=== PATIENT | male | born 1950 | race Caucasian/White ===

== ENCOUNTER → 2018-09-08 11:34 | Outpatient (CLI) | payer OTHER, SELFPAY ==
--- NOTE | 2018-09-08 11:36 | RAD_ITS ---
STUDY: X-RAY - RIGHT KNEE REASON FOR EXAM: Male, 67 years old. Right knee pain. TECHNIQUE: 4 view(s) of the knee. COMPARISON: None. FINDINGS: Normal visualized distal femur. Normal visualized proximal tibia and fibula. Normal proximal tibiofibular articulation. Mild narrowing of the medial femorotibial compartment. Normal lateral femorotibial compartment. Normal patellofemoral articulation. Minimal calcification of the popliteal artery. RAD/Knee 4 or More Views IMPRESSION: 1. 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 2. No acute osseous abnormality of the right knee. Electronically Signed: Andrew Tejada MD at 10:21 EDT , Service support ,
== END ==
PROVIDERS: Family Provider Family Medicine; PCP Family Medicine; Referring Provider Physician Assistant; Visit Provider Physician Assistant
DX: M25.561 Pain in right knee (principal)
CPT/HCPCS: 73564

== ENCOUNTER → 2018-09-15 09:30 | Outpatient (CLI) | payer OTHER, SELFPAY ==
--- NOTE | 2018-09-15 09:32 | US_ITS ---
STUDY: SUPERFICIAL ULTRASOUND - POSTERIOR RIGHT KNEE REASON FOR EXAM: Male, 67 years old. Lump of posterior right knee x1 month TECHNIQUE: A superficial ultrasound was performed with real-time and static mosqueda-scale imaging. COMPARISON: None. FINDINGS: There is a noncompressible cystic structure with septations of the popliteal fossa measuring 2.3 x 1.6 x 1.4 cm. This structure is avascular. US/Ext Non Vasc Limited/Soft Tiss IMPRESSION: Noncompressible cystic structure with septations of the popliteal fossa measuring 2.3 x 1.6 x 1.4 cm, consistent with a complex Howard's cyst. Electronically Signed: Barney Batista MD at 23:49 EDT , Service support ,
== END ==
PROVIDERS: Family Provider Family Medicine; PCP Family Medicine; Referring Provider Physician Assistant; Visit Provider Physician Assistant
DX: L72.9 Follicular cyst of the skin and subcutaneous tissue, unspecified (principal)
CPT/HCPCS: 76882

== ENCOUNTER → 2018-12-23 09:47 | Outpatient (CLI) | payer OTHER, SELFPAY ==
[2018-12-23 12:42] LABS: Absolute Lymphocyte Count 1.23 X10^3/ul (0.83-4.51); Absolute Neutrophil Count 3.1 X10^3/uL (2.0-7.7); Basophil# 0.03 X10^3/uL; Basophil% 0.6 % (0-1); Eosinophil# 0.05 X10^3/uL; Hematocrit 42.4 % (40-54); Hemoglobin 14.3 g/dl (13.0-16.5); Lymphocyte # 1.23 X10^3/ul (4.0); Lymphocyte % 24.8 % (19-41); Mean Corp Hgb Conc 33.7 g/gl (32-36); Mean Corpuscular Hgb 31.9 pg (27.0-32.0); Mean Corpuscular Volume 94.6 fL (80-94); Mean Platelet Vol. 11.1 fl (6.2-12.0); Monocyte% 10.1 % (0-10); Neutrophil # 3.14 X10^3/uL (2.7-7.7); Neutrophil % 63.3 % (47-70); POSITIVE COUNT NO; POSITIVE DIFFERENTIAL NO; POSITIVE MORPHOLOGY NO; Platelet Count 82 K/mm3 (150-450); RBC Distribution Width CV 12.9 % (11.6-14.6); RBC Distribution Width SD 43.4 fl (35.1-43.9); Red Blood Count 4.48 M/mm3 (4.6-6.2)
[2018-12-23 12:54] LABS: Anion Gap 10 (5-15); BUN 19 mg/dL (7-18); BUN/Creat Ratio 21.2 RATIO (10-20); Chloride 105 mmol/L (98-107); EST Glomerular Filtration Rate 90 mL/min (>60); Est Glom Filt Rate - Afr Amer 108 mL/min (>60); Glucose 100 mg/dL (74-106); PSA,Total - Annual Screen 2.05 ng/mL (0.00-4.00); Potassium 3.9 mmol/L (3.5-5.1); Sodium Level 142 mmol/L (136-145); Thyroid Stim Hormone (TSH) 1.46 uIU/mL (0.358-3.74); Uric Acid 5.3 mg/dL (3.5-7.2)
== END ==
PROVIDERS: Family Provider Family Medicine; PCP Family Medicine; Visit Provider Family Medicine
DX: I10 Essential (primary) hypertension (principal); M10.9 Gout, unspecified; N20.0 Calculus of kidney
CPT/HCPCS: 36415; 80048; 84153; 84443; 84550; 85025; G0103

== ENCOUNTER → 2018-12-28 09:57 | Outpatient (CLI) | payer OTHER, SELFPAY ==
[2018-09-08 11:34] VITALS: BMI 28.2
--- NOTE | 2018-12-28 10:00 | CDU_ITS ---
Reason For Study: Carotid stenosis Rt. Velocities/BP Lt. Velocities/BP Prox CCA 112/25.1 cm/sec. Prox CCA 134/25.5 cm/sec. Mid CCA 95.9/25.9 cm/sec. Mid CCA 81.7/22 cm/sec. Dist CCA 70.7/21.2 cm/sec. Dist CCA 80.9/24.4 cm/sec. Prox ICA 74.5/21.7 cm/sec. Prox ICA 76.2/22.8 cm/sec. Mid ICA 79.7/25.2 cm/sec. Mid ICA 84.1/27.5 cm/sec. Dist ICA 77.4/31.7 cm/sec. Dist ICA 82.5/32.2 cm/sec. Rt. ICA/CCA = 0.83. Lt. ICA/CCA = 1.03. Prox ECA 135/30.6 cm/sec. Prox ECA 137/32.4 cm/sec. Rt. Vert. 33.8/11.7 cm/sec. Lt. Vert. 38.9/12.2 cm/sec. Right Extracranial There is intimal thickening but no significant atherosclerotic plaque noted in the right common carotid artery. There is heterogeneous, irregular atherosclerotic plaque noted in the right internal carotid artery. There is intimal thickening but no significant atherosclerotic plaque noted in the right external carotid artery. Antegrade flow is noted in the right vertebral artery. Left Extracranial There is intimal thickening but no significant atherosclerotic plaque noted in the left common carotid artery. There is heterogeneous, irregular atherosclerotic plaque noted in the left internal carotid artery. There is intimal thickening but no significant atherosclerotic plaque noted in the left external carotid artery. Antegrade flow is noted in the left vertebral artery. Procedure Carotid Duplex 45058. Exam performed in department. Interpretation Summary Mild (<50%) stenosis right extracranial internal carotid. Mild (<50%) stenosis left extracranial internal carotid. Flow within the vertebral arteries is antegrade bilaterally. Ordering Physician: Dennys Garvin Referring Physician: Dennys Garvin Performed By: Chay DIAS RD Khloe and Student
== END ==
PROVIDERS: Family Provider Family Medicine; PCP Family Medicine; Referring Provider Family Medicine; Visit Provider Family Medicine
DX: I65.29 Occlusion and stenosis of unspecified carotid artery (principal)
CPT/HCPCS: 93880

== ENCOUNTER 2019-03-03 13:53 | Outpatient (RCR) | payer SELFPAY | END 2019-03-03 19:00 | disposition home or self-care (01) | LOC: PT 13:53 | PROVIDERS: Family Provider Family Medicine; PCP Family Medicine | DX: R69 Illness, unspecified (principal) ==

== ENCOUNTER → 2019-03-23 | Outpatient (CLI) | payer OTHER, SELFPAY ==
[2018-09-08 11:34] VITALS: BMI 28.2
[2019-03-23 12:15] LABS: Absolute Lymphocyte Count 1.39 X10^3/ul (0.83-4.51); Absolute Neutrophil Count 4.1 X10^3/uL (2.0-7.7); Basophil# 0.01 X10^3/uL; Basophil% 0.2 % (0-1); Eosinophil# 0.08 X10^3/uL; Eosinophils% 1.3 % (0-5); Hemoglobin 14.3 g/dl (13.0-16.5); Lymphocyte # 1.39 X10^3/ul (4.0); Lymphocyte % 22.3 % (19-41); Mean Corp Hgb Conc 33.3 g/gl (32-36); Mean Corpuscular Hgb 30.6 pg (27.0-32.0); Mean Corpuscular Volume 92.1 fL (80-94); Mean Platelet Vol. 11.4 fl (6.2-12.0); Monocyte# 0.61 X10^3/uL; Monocyte% 9.8 % (0-10); Neutrophil % 65.9 % (47-70); Platelet Count 103 K/mm3 (150-450); RBC Distribution Width CV 12.7 % (11.6-14.6); RBC Distribution Width SD 41.7 fl (35.1-43.9); Red Blood Count 4.67 M/mm3 (4.6-6.2); White Blood Count 6.2 K/mm3 (4.4-11.0)
[2019-03-23 12:18] LABS: POSITIVE COUNT NO; POSITIVE DIFFERENTIAL NO; POSITIVE MORPHOLOGY NO
[2019-03-23 17:53] LABS: Vitamin B12 613 pg/mL (211-911)
== END | disposition home or self-care (01) ==
LOC: LAB.FUTURE 08:33
PROVIDERS: Family Provider Family Medicine; PCP Family Medicine; Visit Provider Family Medicine
DX: D69.6 Thrombocytopenia, unspecified (principal)
CPT/HCPCS: 36415; 82607; 85025

== ENCOUNTER → 2020-01-19 09:33 | Outpatient (CLI) | payer OTHER, SELFPAY ==
[2018-09-08 11:34] VITALS: BMI 28.2
[2020-01-19 12:18] LABS: Absolute Lymphocyte Count 1.35 X10^3/uL (0.83-4.51); Absolute Neutrophil Count 2.5 X10^3/uL (2.0-7.7); Basophil# 0.03 X10^3/uL; Basophil% 0.7 % (0-1); Eosinophil# 0.03 X10^3/uL; Eosinophils% 0.7 % (0-5); Hematocrit 42.1 % (40-54); Lymphocyte # 1.35 X10^3/ul (4.0); Mean Corp Hgb Conc 33.3 g/dL (32-36); Mean Corpuscular Hgb 30.9 pg (27.0-32.0); Mean Corpuscular Volume 92.9 fL (80-94); Mean Platelet Vol. 10.5 fl (6.2-12.0); Monocyte# 0.47 X10^3/uL; Monocyte% 10.8 % (0-10); NRBC Flagged by Analyzer 0 % (0-5); Neutrophil # 2.46 X10^3/uL (2.7-7.7); Neutrophil % 56.3 % (47-70); POSITIVE COUNT YES; RBC Distribution Width CV 12.7 % (11.6-14.6); RBC Distribution Width SD 43.4 fl (35.1-43.9); Red Blood Count 4.53 M/mm3 (4.6-6.2); White Blood Count 4.4 K/mm3 (4.4-11.0)
[2020-01-19 12:39] LABS: ALB/GLOB Ratio 1.2 RATIO (0.9-2.4); AST(SGOT) 17 U/L (15-37); Alanine Aminotransfer ALT/SGPT 29 U/L (16-61); Albumin, Serum 3.9 g/dL (3.2-5.0); Alkaline Phosphatase 73 U/L (45-117); Anion Gap 6 (5-15); BUN 20 mg/dL (7-18); BUN/Creat Ratio 22.9 RATIO (10-20); Calcium,Total 8.8 mg/dL (8.5-10.1); Chloride 108 mmol/L (98-107); Creatinine, Serum 0.87 mg/dL (0.70-1.30); EST Glomerular Filtration Rate 92 mL/min (>60); Est Glom Filt Rate - Afr Amer 111 mL/min (>60); Globulin 3.3 g/dL (2.2-4.2); Glucose 98 mg/dL (74-106); PSA,Total - Annual Screen 1.58 ng/mL (0.00-4.00); Protein, Total 7.2 g/dL (6.4-8.2); Sodium Level 139 mmol/L (136-145); T4 Free Direct 0.89 ng/dL (0.76-1.46); Thyroid Stim Hormone (TSH) 1.12 uIU/mL (0.358-3.74); Uric Acid 5.1 mg/dL (3.5-7.2)
[2020-01-19 12:40] LABS: Differential Indicated SCAN CRITERIA MET
[2020-01-19 13:13] LABS: Platelet Estimate SLT DEC (ADEQ)
[2020-01-19 13:14] LABS: Red Cell Morphology NORM C+C NORMAL (NORM C&C)
== END ==
PROVIDERS: PCP Family Medicine; Visit Provider Family Medicine
DX: I10 Essential (primary) hypertension (principal); E78.5 Hyperlipidemia, unspecified; D69.6 Thrombocytopenia, unspecified; N20.0 Calculus of kidney; Z80.42 Family history of malignant neoplasm of prostate
CPT/HCPCS: 36415; 80053; 84153; 84439; 84443; 84550; 85025; G0103

== ENCOUNTER → 2020-01-26 07:48 | Outpatient (CLI) | payer OTHER, SELFPAY ==
--- NOTE | 2020-01-26 07:53 | CDU_ITS ---
Reason For Study: F/U stenosis Rt. Velocities/BP Lt. Velocities/BP Prox CCA 103.4/12.1 cm/sec. Prox CCA 124.0/23.6 cm/sec. Mid CCA 84.6/18.3 cm/sec. Mid CCA 107.6/29.0 cm/sec. Dist CCA 52.6/15.3 cm/sec. Dist CCA 72.9/23.6 cm/sec. Prox ICA 70.2/24.1 cm/sec. Prox ICA 60.1/19.5 cm/sec. Mid ICA 72.4/24.1 cm/sec. Mid ICA 79.7/29.4 cm/sec. Dist ICA 79.0/27.4 cm/sec. Dist ICA 92.0/34.3 cm/sec. Rt. ICA/CCA = 74.9/84.6=0.9. Lt. ICA/CCA = 92.0/107.6=0.9. Prox ECA 103.4/15.7 cm/sec. Prox ECA 109.4/19.9 cm/sec. Rt. Vert. 55.9/19.7 cm/sec. Lt. Vert. 61.3/18.3 cm/sec. Right Extracranial There is intimal thickening but no significant atherosclerotic plaque noted in the right common carotid artery. There is heterogeneous, irregular atherosclerotic plaque noted in the right internal carotid artery. There is intimal thickening but no significant atherosclerotic plaque noted in the right external carotid artery. Antegrade flow is noted in the right vertebral artery. Left Extracranial There is intimal thickening but no significant atherosclerotic plaque noted in the left common carotid artery. There is heterogeneous, irregular atherosclerotic plaque noted in the left internal carotid artery. There is intimal thickening but no significant atherosclerotic plaque noted in the left external carotid artery. Antegrade flow is noted in the left vertebral artery. Procedure Carotid Duplex 21598. The exam was diagnostic. Exam performed in department. Interpretation Summary Mild (<50%) stenosis right extracranial internal carotid. Mild (<50%) stenosis left extracranial internal carotid. Flow within the vertebral arteries is antegrade bilaterally. Ordering Physician: Dennys Garvin Referring Physician: Dennys Garvin Performed By: Khloe Cartwright RDCS, RVT
== END ==
PROVIDERS: PCP Family Medicine; Referring Provider Family Medicine; Visit Provider Family Medicine
DX: I65.29 Occlusion and stenosis of unspecified carotid artery (principal)
CPT/HCPCS: 93880

== ENCOUNTER 2021-01-10 13:21 | Outpatient (RCR) | payer MEDICARE, SELFPAY ==
[2018-09-08 11:34] VITALS: BMI 28.2
== END 2021-01-10 23:59 ==
LOC: IMMUN 13:21
PROVIDERS: PCP Family Medicine; Visit Provider Family Medicine
DX: Z23 Encounter for immunization (principal)
CPT/HCPCS: 0011A; 0012A; 91301

== ENCOUNTER → 2021-01-23 10:30 | Outpatient (CLI) | payer MEDICARE, OTHER, SELFPAY ==
[2021-01-23 12:18] LABS: Absolute Neutrophil Count 6.2 X10^3/uL (2.0-7.7); Basophil# 0.04 X10^3/uL; Basophil% 0.5 % (0-1); Eosinophil# 0.04 X10^3/uL; Eosinophils% 0.5 % (0-5); Hemoglobin 13.8 g/dL (13.0-16.5); Lymphocyte % 13.9 % (19-41); Mean Corp Hgb Conc 32.9 g/dL (32-36); Mean Corpuscular Hgb 31.3 pg (27.0-32.0); Mean Corpuscular Volume 95.2 fL (80-94); Mean Platelet Vol. 11.6 fl (6.2-12.0); Monocyte# 0.54 X10^3/uL; Monocyte% 6.8 % (0-10); NRBC Flagged by Analyzer 0 % (0-5); Neutrophil # 6.19 X10^3/uL (2.7-7.7); POSITIVE COUNT YES; RBC Distribution Width CV 12.6 % (11.6-14.6); RBC Distribution Width SD 43.7 fl (35.1-43.9); Red Blood Count 4.41 M/mm3 (4.6-6.2); White Blood Count 7.9 K/mm3 (4.4-11.0)
[2021-01-23 12:38] LABS: Differential Indicated SCAN CRITERIA MET
[2021-01-23 12:48] LABS: ALB/GLOB Ratio 1.2 RATIO (0.9-2.4); AST(SGOT) 24 U/L (15-37); Alanine Aminotransfer ALT/SGPT 28 U/L (16-61); Albumin, Serum 3.9 g/dL (3.2-5.0); Alkaline Phosphatase 68 U/L (45-117); Anion Gap 6 (5-15); BUN 16 mg/dL (7-18); BUN/Creat Ratio 19.2 RATIO (10-20); Calcium,Total 8.7 mg/dL (8.5-10.1); Chloride 107 mmol/L (98-107); Cholesterol 160 mg/dL (200); Creatinine, Serum 0.83 mg/dL (0.70-1.30); EST Glomerular Filtration Rate 97 mL/min (>60); Est Glom Filt Rate - Afr Amer 117 mL/min (>60); Globulin 3.2 g/dL (2.2-4.2); Glucose 104 mg/dL (74-106); High Density Lipoprotein 70 mg/dL; PSA,Total - Annual Screen 1.82 ng/mL (0.00-4.00); Potassium 3.9 mmol/L (3.5-5.1); Protein, Total 7.1 g/dL (6.4-8.2); Sodium Level 139 mmol/L (136-145); Thyroid Stim Hormone (TSH) 1.29 uIU/mL (0.358-3.74); Triglycerides 55 mg/dL; Very Low Density Lipoprotein 11 mg/dL (5-40)
[2021-01-23 14:14] LABS: Platelet Estimate ADEQUATE (ADEQ)
== END ==
PROVIDERS: PCP Family Medicine; Visit Provider Family Medicine
DX: E88.81 Metabolic syndrome and other insulin resistance (principal); E78.5 Hyperlipidemia, unspecified; D69.6 Thrombocytopenia, unspecified; Z12.5 Encounter for screening for malignant neoplasm of prostate
CPT/HCPCS: 36415; 80053; 80061; 84153; 84443; 85025; G0103

== ENCOUNTER 2021-12-11 06:43 | Outpatient (CLI) | payer MEDICARE, BC, SELFPAY ==
--- NOTE | 2021-12-11 06:50 | CT_ITS ---
STUDY: CT SOFT TISSUE NECK WITH CONTRAST REASON FOR EXAM: Male, 71 years old. RIGHT THROAT PAIN. 2 month history of right sided earache. RADIATION DOSAGE (If Supplied By Facility): CTDIvol = ( 18.34 ) mGy, DLP = ( 605.00 ) mGycm TECHNIQUE: The patient was scanned in a multi-detector CT scanner. High resolution transaxial imaging was performed following intravenous administration of IV 100mL Isovue-300. Sagittal and coronal images were reconstructed. Individualized dose optimization techniques were used for this CT. COMPARISON: None. FINDINGS: Normal bilateral parotid glands. Normal bilateral valet parker spaces. Normal bilateral parapharyngeal spaces. Normal bilateral carotid spaces. Normal bilateral sublingual and submandibular glands and spaces. Normal visualized nasopharynx. Normal retropharyngeal space. Normal perivertebral space. Normal visualized bilateral faucial tonsils. The visualized tongue, tongue base and oropharynx are normal. There are minimally enlarged lymph nodes of the neck, with preservation of normal froylan architecture, consistent with a reactive lymph hyperplasia. There is no demonstrated solid or cystic mass lesion. There is no abnormal contrast enhancement. Normal epiglottis, bilateral vallecula and hypopharynx. The pre-epiglottic and paraglottic adipose spaces are normal. Normal visualized bilateral piriform sinuses, aryepiglottic folds, vocal cords, and arytenoid-cricoid articulations. Normal subglottic trachea. Normal bilateral lobes of the thyroid gland. Normal visualized pulmonary apices. Normal visualized paranasal sinuses. There is multilevel degenerative changes of the cervical spine. CT/Soft Tissue Neck WITH Contrast IMPRESSION: No acute abnormality is seen. Electronically Signed: Hao Rogers MD at 9:51 EST , Service support ,
[2021-12-11 07:00] LABS: CREATININE FINGERSTICK 0.9 mg/dL (0.70-1.30); EGFR FINGERSTICK > 60.0000 mL/min (>60)
== END 2021-12-11 23:59 | disposition short-term general hospital (02) ==
PROVIDERS: PCP Family Medicine; Referring Provider Otolaryngology; Visit Provider Otolaryngology
DX: H92.01 Otalgia, right ear (principal); R07.0 Pain in throat
CPT/HCPCS: 70491; Q9967

== ENCOUNTER → 2022-03-21 | Outpatient (CLI) | payer MEDICARE, BC, SELFPAY ==
--- NOTE | 2022-03-21 11:57 | RAD_ITS ---
STUDY: XR Shoulder Min 2 Views REASON FOR EXAM: Male, 71 years old. PAIN TECHNIQUE: XR Shoulder Min 2 Views LEFT COMPARISON: None. FINDINGS: Normal glenohumeral articulation. Normal acromioclavicular joint. Normal acromion. Normal humeral head and visualized proximal humerus. The soft tissue structures are unremarkable. Normal visualized pulmonary apex. RAD/Shoulder min 2 Views IMPRESSION: There are no acute findings of the shoulder. Electronically Signed: Haider Morrison MD at 15:33 EDT ,
== END | disposition home or self-care (01) ==
LOC: MTRAD 11:57
PROVIDERS: PCP Family Medicine; Referring Provider Family Medicine; Visit Provider Family Medicine
DX: M25.512 Pain in left shoulder (principal)
CPT/HCPCS: 73030

== ENCOUNTER → 2022-03-25 | Outpatient (CLI) | payer MEDICARE, OTHER, SELFPAY ==
[2022-03-25 10:18] LABS: Vitamin D,25 Hydroxy 42.9 ng/mL
[2022-03-25 10:24] LABS: ALB/GLOB Ratio 1.1 RATIO (0.9-2.4); AST(SGOT) 21 U/L (15-37); Alanine Aminotransfer ALT/SGPT 28 U/L (16-61); Albumin, Serum 3.7 g/dL (3.2-5.0); Alkaline Phosphatase 69 U/L (45-117); Anion Gap 6 (5-15); BUN 17 mg/dL (7-18); BUN/Creat Ratio 18.2 RATIO (10-20); Calcium,Total 8.3 mg/dL (8.5-10.1); Chloride 105 mmol/L (98-107); Cholesterol 174 mg/dL (200); Creatinine, Serum 0.93 mg/dL (0.70-1.30); EST Glomerular Filtration Rate 85 mL/min (>60); Est Glom Filt Rate - Afr Amer 102 mL/min (>60); Globulin 3.3 g/dL (2.2-4.2); Glucose 107 mg/dL (74-106); High Density Lipoprotein 73 mg/dL; PSA,Total - Annual Screen 2.27 ng/mL (0.00-4.00); Potassium 3.9 mmol/L (3.5-5.1); Sodium Level 140 mmol/L (136-145); Triglycerides 90 mg/dL; Very Low Density Lipoprotein 18 mg/dL (5-40)
== END | disposition home or self-care (01) ==
PROVIDERS: PCP Family Medicine; Referring Provider Family Medicine; Visit Provider Family Medicine
DX: Z00.00 Encounter for general adult medical examination without abnormal findings (principal); E78.5 Hyperlipidemia, unspecified; E55.9 Vitamin D deficiency, unspecified; Z12.5 Encounter for screening for malignant neoplasm of prostate
CPT/HCPCS: 36415; 80053; 80061; 82306; 84153; 84403; G0103

== ENCOUNTER 2023-04-24 10:00 | Outpatient (RCR) | payer MEDICARE, OTHER, SELFPAY ==
--- NOTE | 2023-03-26 09:28 | HP.PTEVAL_ITS ---
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 Date of Evaluation: 03/26/23 Physical Therapist: Jacek Boo, DPT, OCS, CSCS - Visit Plan Frequency: 2x /Week Duration: 4-6 Weeks Plan: 2x/week for 4 weeks for. 1. rollout to L itb, quad adn stretch, given ITB and knee ROM today, add quad next session). L knee flexion ROM and mobs for ROM. strength hips and knees to HEP - Subjective L knee pain for a m onth and started with working on cement for 3 days doing dishes and running around. Pain is outside of knee at joint line. Sometimes posterior lateral. had injection cortisone and that helped 2 days ago helped 75 %. Prior to injection 06/02 on daily basis after on it alot. Pretty comfortable when not on it. Sleeps OK. Twisting on it is worse, stairs are worse. Straight walking not bad. Wrok is not effected right now but can hurt. basic ADLs are getting done. Likes to golf but weather has not been favorable and not sure if he could. No regular exercises, walks for fitness a couple miles and has cut back to 50%. Tired when he is done. x rays show some OA,. Had this on R knee a couple years ago and ex helped. - Pain L knee Pain Intensity (Out of 10): 0 Pain Intensity Range: 0, 3, 7 Comment: 3 since injection. - Objective Walks with L antalgia first couple steps out of chair but smooths out, appears very stiff in legs , antalgia L on steps up but able, reciprocal down with less pain. R knee 0-135, L knee 0-117. L Hip extension ROM limited to neutral as is R. Others WNL at hip and ankle. ITB and quad max tight B, HS mod tight at -35 90/90 test. reflexes 1/3 B patella and achilles. sensation LE WNL to gross light touch. strength hips 4/5, knee ext L 4- and R 4, HSC 4 B and ankles 4+ B. + bounce home, + patellar grind, - anterior drawer, - post sag. - Balance/Special Test Scores Lower Extremity Functional Score: 52 - Goals Goal 1:: full aROm to 135 L knee flexion without pain Goal Time Frame: 4-6 Weeks Goal 2:: I appropriate strength hips, knees and stretching upper leg to manage condition Goal Time Frame: 4-6 Weeks Goal 3:: Patient ambulate community and steps without antalgia Goal Time Frame: 4-6 Weeks Goal 4:: LEFS score 60 Goal Time Frame: 4-6 Weeks - Rehabilitation Potential Physical Therapy Diagnosis: OA vs ITB syndrome vs meniscus causing pain and diminished funciton Rehabilitation Potential: Fair - Anticipated Interventions Patient/Client Instruction: Educate patient on: Condition, Plan of Care For the Purpose of:: To decrease pain, To increase ROM, To improve nutrient delivery to tissue, To increase tolerance to activity/condition/position, To improve gait and locomotor functions Therapeutic Exercise to Include: Strength training, Flexibilty training, Passive ROM, Active ROM For the Purpose of:: To decrease pain, To decrease swelling/inflammation, To increase ROM, To improve nutrient delivery to tissue, To improve muscle performance and motor function, To increase tolerance to activi ty/condition/position Manual Therapy Techniques to Include: Mobilization, Passive ROM, Soft tissue mobilization For the Purpose of:: To decrease pain, To increase ROM Thank you for the opportunity to evaluate your patient. For Medicare and Medicare HMO plans, please review the plan of care and approve it. It will need to be FAXED BACK to us at [phone] for Medicare purposes. For Medicare only, by signing this I certify the plan of care. Please let me know if there are questions or concerns regarding this plan of care. Physician Signature: Date:
--- NOTE | 2023-04-24 10:49 | HP.PTDCSUM_ITS ---
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 Discharge Date: 04/24/23 Please see the following information for a summary of their discharge status. Subjective: Getting better slowly. I can climb steps easier now. Walking is better but still stiff upon arising. Nothing scheduled with [place].Wants to cotninue via HEP and call doctor if improvement stops. L knee Pain Intensity (Out of 10): 0 L calf Pain Intensity (Out of 10): 0 % Improvement: 50 Objective/Function: 0-125 L knee AROM. Walks antalgic on L for first few steps then smooths out, steps are reciprocal without pain with one rail Goal 1:: full aROm to 135 L knee flexion without pain Goal Progress: Progressing Goal 2:: I appropriate strength hips, knees and stretching upper leg to manage condition Goal Progress: Goal Met Goal 3:: Patient ambulate community and steps without antalgia Goal Progress: Goal Met, once loose Goal 4:: LEFS score 60 Goal Progress: Goal Met Plan: d/c, pt to continue via HEP and contact doctor if pain frustrates him. If there are questions or concerns regarding this patient's physical therapy, please feel free to call me at [phone]. Thank you for the referral of this patient. Sincerely, Jacek Boo, DPT, OCS, CSCS Balance/Gait/Functional tests - Balance/Special Test Scores Lower Extremity Functional Score: 64
== END 2023-04-24 19:00 | disposition home or self-care (01) ==
LOC: PT 10:00
PROVIDERS: PCP Family Medicine; Referring Provider Physician Assistant; Visit Provider Physician Assistant
DX: M17.12 Unilateral primary osteoarthritis, left knee (principal); M76.32 Iliotibial band syndrome, left leg
CPT/HCPCS: 97110; 97162; 97164

== ENCOUNTER → 2023-05-02 | Outpatient (CLI) | payer MEDICARE, OTHER, SELFPAY ==
[2023-05-02 11:40] LABS: ALB/GLOB Ratio 1.3 RATIO (0.9-2.4); AST(SGOT) 19 U/L (15-37); Alanine Aminotransfer ALT/SGPT 23 U/L (16-61); Albumin, Serum 3.6 g/dL (3.2-5.0); Alkaline Phosphatase 56 U/L (45-117); Anion Gap 7 (5-15); BUN 20 mg/dL (7-18); BUN/Creat Ratio 24.4 RATIO (10-20); Calcium,Total 8.3 mg/dL (8.5-10.1); Chloride 109 mmol/L (98-107); Cholesterol 172 mg/dL (200); Creatinine, Serum 0.82 mg/dL (0.70-1.30); EST Glomerular Filtration Rate 98 mL/min (>60); Est Glom Filt Rate - Afr Amer 119 mL/min (>60); Globulin 2.8 g/dL (2.2-4.2); Glucose 95 mg/dL (74-106); High Density Lipoprotein 97 mg/dL; PSA,Total - Annual Screen 2.03 ng/mL (0.00-4.00); Potassium 4.6 mmol/L (3.5-5.1); Protein, Total 6.4 g/dL (6.4-8.2); Sodium Level 142 mmol/L (136-145); Triglycerides 32 mg/dL; Very Low Density Lipoprotein 6 mg/dL (5-40)
== END | disposition home or self-care (01) ==
LOC: MFPLAB 08:40
PROVIDERS: PCP Family Medicine; Visit Provider Family Medicine
DX: Z00.00 Encounter for general adult medical examination without abnormal findings (principal); I10 Essential (primary) hypertension
CPT/HCPCS: 36415; 80053; 80061; 84153; G0103

== ENCOUNTER → 2023-05-16 | Outpatient (CLI) | payer MEDICARE, OTHER, SELFPAY ==
--- NOTE | 2023-05-16 13:26 | MRI_ITS ---
EXAM: MR LEFT LOWER EXTREMITY WITHOUT INTRAVENOUS CONTRAST, KNEE CLINICAL INDICATION: LEFT KNEE PAIN TECHNIQUE: Multiplanar and multisequence MR images of the left knee without intravenous contrast. COMPARISON: A FINDINGS: BONES/JOINTS: See below. EXTENSOR MECHANISM: Unremarkable. MEDIAL MENISCUS: Complex tear of the posterior horn of the medial meniscus. LATERAL MENISCUS: Unremarkable. MEDIAL CAPSULE/SUPPORTING STRUCTURES: Unremarkable. Intact. LATERAL CAPSULE/SUPPORTING STRUCTURES: Unremarkable. Lateral collateral ligamentous complex, inclusive of the popliteal tendon, are intact. ANTERIOR CRUCIATE LIGAMENT: Unremarkable. Intact. POSTERIOR CRUCIATE LIGAMENT: Unremarkable. Intact. MUSCLES: Unremarkable. CARTILAGE: There are areas of high-grade to full-thickness chondral loss involving the medial femorotibial compartment with bone marrow edema on the tibial side. No other bone marrow signal alterations. FLUID: Small Howard''s cyst with possible inferior leakage or rupture. At least moderate suprapatellar joint effusion without synovitis or intra-articular ossific bodies. OTHER SOFT TISSUES: See above. MRI/Lower Ext Joint Only (Routine) IMPRESSION: 1. Complex tear of the posterior horn of the medial meniscus. 2. High-grade to full-thickness chondral loss involving the medial femorotibial compartment with probably degenerative marrow edema on the tibial side. 3. Small Howard''s cyst with possible inferior leakage or rupture. Electronically Signed: Aki Suarez MD at 21:28 EDT ,
== END | disposition home or self-care (01) ==
LOC: MRI 13:15
PROVIDERS: PCP Family Medicine; Referring Provider Family Medicine; Visit Provider Family Medicine
DX: M25.562 Pain in left knee (principal)
CPT/HCPCS: 73721

== ENCOUNTER → 2023-08-07 | Outpatient (CLI) | payer MEDICARE, OTHER, SELFPAY ==
--- NOTE | 2023-08-07 08:13 | CT_ITS ---
CT LEFT LOWER EXTREMITY WITH 3-D IMAGING CLINICAL INDICATION: VARUS DEFORMITY. ASHLEY protocol. TECHNIQUE: Axial CT images of the LEFT lower extremity was performed without IV contrast material. Coronal and sagittal reformats were provided. RADIATION DOSAGE (If Supplied By Facility): CTDIvol = ( 18.49 ) mGy, DLP = ( 1355.07 ) mGycm COMPARISON: No relevant prior comparison study available FINDINGS: Bones: Imaging of the left hip joint was obtained. There is good alignment. No significant joint space narrowing is seen. There is evidence of prostatic enlargement with calcification. Imaging of the left knee joint was obtained. There is evidence of a moderate degree of joint space narrowing involving the medial compartment of the knee joint with small sub-chondral cystic changes in the medial condyle of the distal femur. Imaging of the ankle joint was obtained. No significant abnormality is seen. Soft Tissues: Small knee joint effusion. The superficial soft tissues are unremarkable without evidence of edema, hematoma, or foreign body. CT/Extremity Lower without Contra IMPRESSION: Moderate degree of joint space narrowing involving the medial compartment of knee joint with the small subchondral cystic changes in the medial condyle of the distal femur. Small joint effusion. Electronically Signed: Hao Rogers MD at 14:29 EDT ,
--- NOTE | 2023-08-07 08:13 | EKG12_ITS ---
Test Reason : PREOP Blood Pressure : / mmHG Vent. Rate : 053 BPM Atrial Rate : 053 BPM P-R Int : 152 ms QRS Dur : 076 ms QT Int : 442 ms P-R-T Axes : 049 025 003 degrees QTc Int : 414 ms Sinus bradycardia Otherwise normal ECG When compared with ECG of 05-JAN-2010 11:43, Nonspecific T wave abnormality no longer evident in Lateral leads Confirmed by VU MAK, MARC ([id number]), senior editor BASIL MANE ([id number]) on 08/13/2023 10:13:38 AM Referred By: Torey Bazan Confirmed By:MARC WOMACK MD
[2023-08-07 09:38] LABS: Absolute Lymphocyte Count 1.46 X10^3/uL (0.83-4.51); Absolute Neutrophil Count 2.7 X10^3/uL (2.0-7.7); Basophil# 0.03 X10^3/uL; Basophil% 0.6 % (0-1); Eosinophil# 0.08 X10^3/uL; Eosinophils% 1.6 % (0-5); Hematocrit 41.7 % (40-54); Hemoglobin 13.5 g/dL (13.0-16.5); Lymphocyte # 1.46 X10^3/ul (0.83-4.51); Mean Corp Hgb Conc 32.4 g/dL (32-36); Mean Corpuscular Hgb 32.2 pg (27.0-32.0); Mean Corpuscular Volume 99.5 fL (80-94); Monocyte# 0.57 X10^3/uL; Monocyte% 11.7 % (0-10); NRBC Flagged by Analyzer 0 % (0-5); Neutrophil % 55.7 % (47-70); Platelet Count 153 K/mm3 (150-450); RBC Distribution Width CV 13.3 % (11.6-14.6); RBC Distribution Width SD 48.6 fl (35.1-43.9); Red Blood Count 4.19 M/mm3 (4.6-6.2); White Blood Count 4.9 K/mm3 (4.4-11.0)
[2023-08-07 10:23] LABS: Albumin, Serum 3.6 g/dL (3.2-5.0); Anion Gap 0 (5-15); BUN 17 mg/dL (7-18); BUN/Creat Ratio 20.1 RATIO (10-20); Calcium,Total 8.6 mg/dL (8.5-10.1); Chloride 109 mmol/L (98-107); Creatinine, Serum 0.84 mg/dL (0.70-1.30); EST Glomerular Filtration Rate 95 mL/min (>60); Est Glom Filt Rate - Afr Amer 115 mL/min (>60); Glucose 119 mg/dL (74-106); Potassium 4.2 mmol/L (3.5-5.1); Sodium Level 140 mmol/L (136-145)
== END | disposition home or self-care (01) ==
PROVIDERS: PCP Family Medicine; Referring Provider Specialist; Visit Provider Specialist
DX: Z01.818 Encounter for other preprocedural examination (principal); Z01.810 Encounter for preprocedural cardiovascular examination; M21.162 Varus deformity, not elsewhere classified, left knee
CPT/HCPCS: 73700; 80048; 82040; 85025; 87081; 93005

== ENCOUNTER → 2023-11-12 | Outpatient (CLI) | payer MEDICARE, OTHER, SELFPAY ==
[2023-11-12 11:08] LABS: ALB/GLOB Ratio 1.1 RATIO (0.9-2.4); AST(SGOT) 19 U/L (15-37); Alanine Aminotransfer ALT/SGPT 19 U/L (16-61); Albumin, Serum 3.6 g/dL (3.2-5.0); Alkaline Phosphatase 59 U/L (45-117); Anion Gap 4 (5-15); BUN 14 mg/dL (7-18); BUN/Creat Ratio 14.6 RATIO (10-20); Calcium,Total 8.9 mg/dL (8.5-10.1); Chloride 107 mmol/L (98-107); Cholesterol 170 mg/dL (200); Creatinine, Serum 0.96 mg/dL (0.70-1.30); EST Glomerular Filtration Rate 82 mL/min (>60); Est Glom Filt Rate - Afr Amer 99 mL/min (>60); Globulin 3.3 g/dL (2.2-4.2); Glucose 113 mg/dL (74-106); High Density Lipoprotein 81 mg/dL; Potassium 4.1 mmol/L (3.5-5.1); Protein, Total 6.9 g/dL (6.4-8.2); Sodium Level 140 mmol/L (136-145); Triglycerides 77 mg/dL; Very Low Density Lipoprotein 15 mg/dL (5-40)
== END | disposition home or self-care (01) ==
PROVIDERS: PCP Family Medicine; Referring Provider Family Medicine; Visit Provider Family Medicine
DX: I10 Essential (primary) hypertension (principal)
CPT/HCPCS: 36415; 80053; 80061

== ENCOUNTER → 2024-05-03 | Outpatient (CLI) | payer MEDICARE, OTHER, SELFPAY ==
[2024-05-03 13:20] LABS: Anion Gap 6 (5-15); BUN 21 mg/dL (7-18); BUN/Creat Ratio 21.5 RATIO (10-20); Calcium,Total 8.7 mg/dL (8.5-10.1); Chloride 109 mmol/L (98-107); Creatinine, Serum 0.98 mg/dL (0.70-1.30); EST Glomerular Filtration Rate 80 mL/min (>60); Est Glom Filt Rate - Afr Amer 97 mL/min (>60); Glucose 125 mg/dL (74-106); Potassium 4.2 mmol/L (3.5-5.1); Sodium Level 139 mmol/L (136-145)
[2024-05-04 09:41] LABS: Hemoglobin A1c 5.6 % (3.8-5.6)
== END | disposition home or self-care (01) ==
LOC: MFPLAB 09:31
PROVIDERS: PCP Family Medicine; Visit Provider Family Medicine
DX: I10 Essential (primary) hypertension (principal); R73.09 Other abnormal glucose
CPT/HCPCS: 36415; 80048; 83036

== ENCOUNTER → 2025-01-24 | Outpatient (CLI) | payer MEDICARE, OTHER, SELFPAY ==
[2025-01-24 11:44] LABS: ALB/GLOB Ratio 1.6 RATIO (0.9-2.4); AST(SGOT) 27 U/L (<=37); Alanine Aminotransfer ALT/SGPT 17 U/L (<=46); Albumin, Serum 4.1 g/dL (3.4-4.8); Alkaline Phosphatase 67 U/L (40-129); Anion Gap 11 (5-15); BUN 15 mg/dL (4-19); BUN/Creat Ratio 16.9 RATIO (10-20); Calcium 9.4 mg/dL (7.6-11.0); Chloride 106 mmol/L (96-108); Cholesterol 154 mg/dL (<=200); Creatinine, Serum 0.87 mg/dL (0.70-1.20); EST Glomerular Filtration Rate 91 (>60); Globulin 2.6 g/dL (2.2-4.2); Glucose 119 mg/dL (70-99); High Density Lipoprotein 75 mg/dL; Low Density Lipoprotein Calc. 64 mg/dL; PSA,Total - Annual Screen 1.99 ng/mL (0.02-4.00); Potassium 4.2 mmol/L (3.3-5.1); Protein, Total 6.7 g/dL (5.9-8.4); Sodium Level 142 mmol/L (133-145); Total Bilirubin 0.44 mg/dL (0.00-1.30); Triglycerides 75 mg/dL; Very Low Density Lipoprotein 15 mg/dL (5-40); cholesterol:hdl ratio screen 2.06
== END | disposition home or self-care (01) ==
LOC: MFPLAB 09:10
PROVIDERS: PCP Family Medicine; Referring Provider Family Medicine; Visit Provider Family Medicine
DX: I10 Essential (primary) hypertension (principal); Z12.5 Encounter for screening for malignant neoplasm of prostate
CPT/HCPCS: 36415; 80053; 80061; 84153; G0103

== ENCOUNTER → 2025-03-17 | Outpatient (CLI) | payer MEDICARE, OTHER, SELFPAY ==
--- NOTE | 2025-03-17 06:40 | ECHOD_ITS ---
Reason For Study Reason For Study: CAD/ASHD Procedure This was a 2D Doppler, Color Flow transthoracic echocardiogram. Exam performed in department. Left Ventricle Normal LV size. Mild concentric left ventricular hypertrophy. Left ventricular systolic function is normal. The left ventricular ejection fraction is 65 %. No regional wall motion abnormalities noted. Right Ventricle Normal RV size. Normal systolic function. Atria Normal left atrium. Normal right atrium. Mitral Valve Normal mitral valve. Tricuspid Valve Normal tricuspid valve. Aortic Valve Trisinus/trileaflet aortic valve. Pulmonic Valve Normal pulmonic valve. Great Vessels Normal sized aortic root. The pulmonary artery is normal size. Inferior vena cava collapse with respiration. Pericardium/Pleural No pericardial effusion. MMode/2D Measurements & Calculations LVIDd: 4.0 cm IVSd: 1.3 cm LVOT diam: 2.0 cm LVIDs: 2.6 cm LVPWd: 1.4 cm LVOT area: 3.1 cm2 RVDd: 3.8 cm FS: 33.8 % Ao root diam: 3.5 cm LAV(MOD-bp): 55.8 ml LVAd ap4: 28.5 cm2 LAV(MOD-bp) Indexed: 30.7 ml/m2 LVLd ap4: 8.3 cm LAV(MOD-sp2): 60.4 ml EDV(MOD-sp4): 82.8 ml LAV(MOD-sp4): 48.6 ml EDV(sp4-el): 83.4 ml LVAs ap4: 14.6 cm2 LVLs ap4: 7.2 cm ESV(MOD-sp4): 28.8 ml ESV(sp4-el): 25.4 ml EF(MOD-sp4): 65.2 % EF(sp4-el): 69.5 % SV(MOD-sp4): 54.0 ml SV(sp4-el): 58.0 ml LA A4 area: 17.4 cm2 SI(MOD-sp4): 29.7 ml/m2 LA dimension(2D): 4.4 cm RA A4 area: 11.6 cm2 Time Measurements MV dec time: 0.20 sec Doppler Measurements & Calculations MV E max sergio: 77.9 cm/sec Lat Peak E' Sergio: 9.4 cm/sec Med Peak E' Sergio: 8.5 cm/sec MV A max sergio: 59.9 cm/sec E/E' lat: 8.3 E/E' med: 9.2 MV E/A: 1.3 MV V2 max: 87.2 cm/sec Ao V2 max: 110.5 cm/sec MV max P.0 mmHg MV dec slope: 384.3 cm/sec2 Ao max P.9 mmHg MV V2 mean: 42.2 cm/sec Ao V2 mean: 77.9 cm/sec MV mean P.89 mmHg Ao mean P.7 mmHg MV V2 VTI: 27.1 cm Ao V2 VTI: 28.8 cm AV (velocity ratio): 0.87 MVA(VTI): 2.9 cm2 BRYANT(I,D): 2.7 cm2 BRYANT(V,D): 2.7 cm2 LV V1 max: 95.2 cm/sec SV(LVOT): 78.1 ml PA V2 max: 89.7 cm/sec LV V1 max P.6 mmHg PA V2 mean: 62.3 cm/sec LV V1 mean P.9 mmHg LV V1 mean: 63.9 cm/sec LV V1 VTI: 25.0 cm ECHO/Echo Complete Interpretation Summary Normal LV size. Left ventricular systolic function is normal. Mild concentric left ventricular hypertrophy. The left ventricular ejection fraction is 65 %. Structurally normal valves. Ordering Physician: Guzman Adame Referring Physician: Guzman Adame Performed By: Chela Lee RCS
--- NOTE | 2025-03-17 16:43 | STRESSREP ---
Stress Test Report Exercise myocardial perfusion stress test. 74-year-old man with a history of an abnormal calcium score. Stress protocol: Resting EKG demonstrates sinus bradycardia with a rate of 51 bpm resting blood pressure is 170/84 mmHg. The patient exercised according to the regular Morales protocol for a total duration of 6 minutes attaining a maximum heart rate of 130 bpm which was 89% of maximum predicted heart rate; the maximum workload was 7 metabolic equivalents. At rest there were no ST or T wave changes noted to suggest ischemia and at peak exercise upsloping ST changes only were noted which did not meet the criteria for ischemia. No clinical angina was noted the test was terminated due to the target heart rate being achieved/fatigue. The peak blood pressure was 170/92 mmHg. Rate-pressure product was 22,000. Myocardial perfusion protocol. 12.2 mCi of technetium 99m sestamibi was injected at rest. The patient exercised according to regular Morales protocol for total duration of 6 minutes and at peak exercise 37.3 mCi of technetium 99m sestamibi was injected stress images were obtained stress and rest images were reconstructed in comparing the short axis vertical long and horizontal long axis. Gated images were also obtained. Perfusion SPECT analysis: Review of the stress images demonstrate normal uptake of tracer noted in all areas of the myocardium. The resting images similarly demonstrate normal uptake of tracer noted in all areas of the myocardium. No areas of reversibility are noted to suggest ischemia no previous infarct was noted. Gated SPECT analysis: The gated ejection fraction is 70%. Conclusion: Normal exercise myocardial perfusion stress test at a moderate workload Preserved ejection fraction.
== END | disposition home or self-care (01) ==
LOC: CVS 06:39
PROVIDERS: PCP Family Medicine; Referring Provider Internal Medicine Cardiovascular Disease; Visit Provider Internal Medicine Cardiovascular Disease
DX: I25.10 Atherosclerotic heart disease of native coronary artery without angina pectoris (principal); R93.1 Abnormal findings on diagnostic imaging of heart and coronary circulation
CPT/HCPCS: 78452; 93017; 93306; A9500; A4216

== ENCOUNTER → 2025-07-27 | Outpatient (CLI) | payer MEDICARE, OTHER, SELFPAY ==
[2025-07-27 13:02] LABS: Anion Gap 11 (5-15); BUN 22 mg/dL (4-19); BUN/Creat Ratio 23.3 RATIO (10-20); Calcium,Total 9.4 mg/dL (7.6-11.0); Carbon Dioxide 25.6 mmol/L (21.0-32.0); Chloride 104 mmol/L (98-108); Cholesterol 159 mg/dL (<=200); Glucose 132 mg/dL (70-99); Low Density Lipoprotein Calc. 79 mg/dL; Potassium 4.2 mmol/L (3.3-5.1); Triglycerides 79 mg/dL; Very Low Density Lipoprotein 16 mg/dL (5-40); cholesterol:hdl ratio screen 2.47
== END | disposition home or self-care (01) ==
PROVIDERS: PCP Family Medicine; Referring Provider Family Medicine; Visit Provider Family Medicine
DX: I10 Essential (primary) hypertension (principal)
CPT/HCPCS: 36415; 80048; 80061